=== PATIENT | female | born 1955 | race Caucasian/White ===

== ENCOUNTER 2019-11-03 15:09 | Emergency (ER) | payer OTHER ==
[~2019-11-03] VITALS: Ht 160 cm; Wt 68.0 kg
--- NOTE | 2019-11-03 15:09 | NUR ---
Patient BIBA BLS, transferred to bed 1. RN evaluating patient at bedside.
[2019-11-03 15:12] VITALS: BP 139/63
--- NOTE | 2019-11-03 15:15 | NUR ---
INITAL CONTACT WITH PATIENT -- RECEVIED A 64/F FROM EMS WITH A C/O GENERALIZED WEAKNESS. PER EMS PT WAS AT [facility] AND APPEARED MORE ALTERED AND LETHARGIC THAN NORMAL. PT DID NOT COMPLETE SCHEDULED DIALYSIS (M,W,F SCHEDULE). PT IS ALERT TO NAME ONLY AND ANSWERING SOME QUESTIONS APPROPRAITELY. DR LANE AT BEDSIDE FOR MSE.
--- NOTE | 2019-11-03 15:16 | NUR ---
NEGATIVE COVID SCREEN.
--- NOTE | 2019-11-03 16:08 | NUR ---
PT SENT TO CT WITH TECH
--- NOTE | 2019-11-03 16:11 | NUR ---
TO CT [facility]IA [facility].
--- NOTE | 2019-11-03 16:24 | NUR ---
PT RETURNED FROM [facility]
--- NOTE | 2019-11-03 17:00 | NUR ---
ATTEMPTED IN AND OUT CATH -- NO URINE OUTPUT. DR ARIANA RIOS.
[2019-11-03 17:52] LABS: BASOPHILS # (AUTO) 0.1 K/uL (0.00-0.22); BASOPHILS % (AUTO) 1.3 % (0.0-2.0); EOSINOPHILS # (AUTO) 0.7 K/uL (0-0.4); EOSINOPHILS % (AUTO) 7.7 % (0.0-4.0); HEMATOCRIT 36.8 % (36-48); HEMOGLOBIN 11.9 g/dL (12.0-16.0); LYMPHOCYTES # (AUTO) 1.7 K/uL (2.5-16.5); LYMPHOCYTES % (AUTO) 17.9 % (20.5-51.1); MEAN CORPUSCULAR HEMOGLOBIN 28 pg (27-31); MEAN CORPUSCULAR HGB CONC 32 g/dL (33-37); MEAN CORPUSCULAR VOLUME 86.6 fL (80-94); MONOCYTES # (AUTO) 0.3 K/uL (0.8-1.0); MONOCYTES % (AUTO) 3.2 % (1.7-9.3); NEUTROPHILS # (AUTO) 6.6 K/uL (1.8-7.7); NEUTROPHILS % (AUTO) 69.9 % (42.2-75.2); PLATELET COUNT (AUTO) 370 K/uL (140-450); RED BLOOD CELL COUNT(AUTO) 4.25 MIL/uL (4.20-5.40); RED CELL DISTRIBUTION WIDTH 15.7 % (11.6-13.7); WHITE BLOOD COUNT (AUTO) 9.4 K/uL (4.8-10.8)
[2019-11-03 18:07] LABS: ALBUMIN 2.3 g/dL (3.4-5.0); ANION GAP 16.5 (8-16); CARBON DIOXIDE 28.4 mmol/L (21-32); POTASSIUM 4.9 mmol/L (3.5-5.1); TOTAL BILIRUBIN 0.4 mg/dL (0.0-1.0)
[2019-11-03 18:09] LABS: CREATININE 8.9 mg/dL (0.6-1.3)
[2019-11-03] MEDS ORDERED: INSULIN REGULAR, HUMAN 100 UNIT/ML VIAL SUBQ ONE ×2 (18:20→18:45)
--- NOTE | 2019-11-03 18:27 | NUR ---
MULTIPLE ATTEMPTS MADE TO CALL [facility] TO OBTAIN CLINICAL INFORMATION ABOUT PATIENT. NO ANSWER. PHONE CONTINUES TO RING.
--- NOTE | 2019-11-03 18:33 | NUR ---
SPOKE WITH TAMMIE MACE FROM [facility]. CONFIRMED PATIENT'S BASELINE. NORMAL BASELINE PER FACILITY IS [facility] 14, NOT ABLE TO HOLD CONVERSATION BUT ABLE TO FOLLOW BASIC COMMANDS. Addendum: 11/03/19 at 1854 by [facility] TAMMIE MACE ALSO TO FAX OVER MED REC.
[2019-11-03] MEDS ORDERED: ASPIRIN 81 MG TAB.CHEW PO ONE (18:45)
--- NOTE | 2019-11-03 18:56 | NUR ---
MEDICATED ORDERED. PT TOLERATED WELL.
--- NOTE | 2019-11-03 19:08 | NUR ---
REPORT TO PAPI SMITH. ALL CARE TRANSFERED AT THIS TIME.
--- NOTE | 2019-11-03 19:21 | NUR ---
PATIENT RESTING WITH EYES CLOSED, BREATHING EVEN AND UNLABORED
--- NOTE | 2019-11-03 19:47 | NUR ---
PATIENT NOT ABLE TO URINATE, DR ROBERTS STATES HE DOES NOT NEED URINE AND IT IS OK
--- NOTE | 2019-11-03 19:55 | NUR ---
[facility] CALLED REGARDING PATIENT STATUS THAT SHE WILL BE RETURNING TO FACILITY. TRANSPORT ETA IS 60MINS
[2019-11-03 20:54] VITALS: BP 141/70
--- NOTE | 2019-11-03 20:54 | NUR ---
Patient discharged with v/s stable. Written and verbal after care instructions given and explained. Patient verbalized understanding. Ambulance Transport with to home. All questions addressed prior to discharge. Advised to follow up with PMD.
== END 2019-11-03 20:54 ==
LOC: MED 15:09
DX: E11.22 Type 2 diabetes mellitus with diabetic chronic kidney disease (principal); I12.0 Hypertensive chronic kidney disease with stage 5 chronic kidney disease or end stage renal disease; N18.6 End stage renal disease; E11.65 Type 2 diabetes mellitus with hyperglycemia; G93.40 Encephalopathy, unspecified; E78.5 Hyperlipidemia, unspecified; Z86.73 Personal history of transient ischemic attack (TIA), and cerebral infarction without residual deficits
CPT/HCPCS: 36415; 36600; 70450; 71045; 80053; 82140; 82803; 83880; 84484; 85025; 85610; 85730; 96372; 99285; J1815